=== PATIENT | female | born 1995 | race Caucasian/White ===

== ENCOUNTER 2016-12-17 16:40 | Emergency (ER) | payer BC ==
[2016-12-17 17:15] LABS: % IMMATURE GRANULYOCYTES 0.3 % (0.0-1.1); ABSOLUTE IMMATURE GRANULOCYTES 0.03 10^3/uL (0.00-0.10); ADD DIFF? NO; ADD MORPH? NO; ADD SCAN? NO; ATYPICAL LYMPHOCYTE FLAG 10 (0-99); FRAGMENT RBC FLAG 0 (0-99); HEMATOCRIT 42.1 % (38.0-47.0); HEMOGLOBIN 13.3 g/dL (12.6-16.3); LEFT SHIFT FLG 0 (0-99); LIPEMIA HEMOLYSIS FLAG 80 (0-99); MEAN CELL HEMOGLOBIN 24.5 pg (27.9-34.1); MEAN CELL HEMOGLOBIN CONCENTR. 31.6 g/dL (32.4-36.7); MEAN CELL VOLUME 77.7 fL (81.5-99.8); MEAN PLATELET VOLUME 10.9 fL (8.7-11.7); PLATELET CLUMPS FLAG 0 (0-99); PLATELET COUNT 270 10^3/uL (150-400); RED BLOOD CELL COUNT 5.42 10^6/uL (4.18-5.33); RED CELL DISTRIBUTION WIDTH 13.9 % (11.5-15.2)
--- NOTE | 2016-12-17 17:19 | EDPHY ---
Mental Health General Previous Psychiatric History: previous inpatient psychiatric admission, previous suicide attempt, depression, anxiety History Review: I reviewed the patient's medical records Smoking Status: Never smoked Time Medically Cleared for Psychiatric Evaluation: 18:05 Course: patient remained stable over course of my shift, no additional interventions Narrative: HPI: This is a 21-year-old female who presents with Chief Complaint: Suicidal ideation Location: Quality: Suicidal ideation Duration: Several days Signs and Symptoms: + Depression, + anxiety, + insomnia, + suicidal ideation, no homicidal ideation, no psychosis, no hallucinations Timing: Sudden, constant, worsening Severity: Moderate to severe Context: Patient presents with sudden on thoughts of suicidal ideation with a plan of swallowing pills after follow-up with her friends and now seems to be a strange from them and her support group here in [place]. She lives alone in apartment. Attends [place] [email or web address]. He has not been on any antidepressant , benzodiazepines, antipsychotics in several years as she has been "doing better." She is afraid that she will take her life so she came to the ER for help. Reports that when she was 15 years old she overdosed on Effexor and spent time in inpatient psychiatric hospital. Denies any medical history. Denies recreational drug use. Modifying Factors: Comment: ROS: Constitutional: No fever, no chills, no weight loss Eyes: No blurred vision Respiratory: No shortness of breath, no cough Cardiovascular: No chest pain Gastrointestinal: No nausea, no vomiting no diarrhea Genitourinary: No dysuria Extremities: No myalgias Neurologic: No weakness, no numbness Skin: No rashes Hematologic: No bruising, no bleeding MEDICAL/SURGICAL/SOCIAL HISTORY: ADD, anxiety, IUD in place. CONSTITUTIONAL: Pleasant young adult white female, awake and alert, no obvious distress HEENT: Atraumatic and normocephalic, PERRL, EOMI. Tympanic membranes clear. . Oropharynx clear, no exudate and moist pink mucosa. Airway patent. No lymphadenopathy. No meningismus. Cardiovascular: Normal S1/S2, regular rate, regular rhythm, without murmur rub or gallop. PULMONARY/CHEST: Symmetrical and nontender. Clear to auscultation bilaterally Good air movement. No accessory muscle usage. ABDOMEN: Soft, nondistended, nontender, no rebound, no guarding, no peritoneal signs, no masses or organomegaly. No CVAT. EXTREMITIES: 2/2 pulses, no deformities, no clubbing, no cyanosis or edema. NEUROLOGICAL: no focal neuro deficits. GCS 15. PSYCH: Fair insight and judgment, no flight of ideas, + depression, + flat affect, no psychosis, + suicidal ideations with a plan SKIN: Warm and dry, no erythema. no rash. Good capillary refill. (Sarah Adams) 0716: No acute events overnight however this patient does not contract for safety. The plan is for her father to fly out here from [place] today and meet her in pick her up from the emergency room. He was advised to me by the evaluate her previously that the patient should not leave the emergency room in stay here on a detain her for safety as she is not irma for safety. Until her father arrives. 0720: Lengthy discussion with mental health as well as reviewed previous notes. For plan was in place that this patient was not irma for safety and due to that her father was to fly here from [place] and excelsior picker her daughter. It Is requested this patient remain on a detain her until her father gets here. (Flip Plascencia) This patient was turned over to me at change of shift. As it turns out the psychiatric jumpbasting canvas baster from last night spoke to the psychiatric jumpbasting canvas baster this morning. They re-evaluated the patient's then spoke to the psychiatrist Dr. ana paula unger. Everyone is in agreement this patient is now contract for safety and is safe going home. Her father is flying in from [place] and will be here in a few hours. The patient would like to attend class at the [facility] at noon and not miss that class. I will discharge the patient based on the advice of the psychiatric team. (Eduard Frank) Medical Decision Makin: Patient is depressed with suicidal ideations and a plan with prior attempts at suicide and psychiatric inpatient admission. She is here voluntarily. Will obtain medical clearance and consult for mental evaluation. 180: Medically clear for psychiatric evaluation 2104: Evaluated by psychiatry who recommends patient remain in this facility until tomorrow when her [facility] and can contract for her safety as she is not safe to be alone at this time. They do not recommend inpatient treatment at this time (Sarah Adams) - Objective Vital Signs: Initial Vital Signs Temperature (C) 37 C 12/17/16 16:45 Heart Rate 88 12/17/16 16:45 Respiratory Rate 16 12/17/16 16:45 Blood Pressure 120/96 H 12/17/16 16:45 O2 Sat (%) 92 12/17/16 16:45 O2 Delivery Mode Room Air Allergies/Adverse Reactions: CEFZIL Allergy (Uncoded 12/17/16 16:48) Home Medications: Medication Instructions Recorded Concerta 12/17/16 traZODone 12/17/16 Laboratory Results: Laboratory Results 12/17/16 17:05 12/17/16 17:05 Departure - Departure Disposition: Home, Routine, Self-Care Clinical Impression: Depression Qualifiers: Depression Type: major depressive disorder Major depression recurrence: single episode Active/Remission status: currently active Major depression episode severity: mild Qualified Code(s): F32.0 - Major depressive disorder, single episode, mild Condition: Good Instructions: Depression (ED) Referrals: NONE *PRIMARY CARE P,. [Primary Care Provider] - As per Instructions
[2016-12-17 17:35] LABS: ANION GAP 14 mEq/L (8-16); CALCIUM 9.9 mg/dL (8.5-10.4); CARBON DIOXIDE 25 mEq/l (22-31); CHLORIDE 103 mEq/L (97-110); CREATININE 0.7 mg/dL (0.6-1.0); ETHANOL SERUM < 10 mg/dL (0-10); GLOMERULAR FILTRATION RATE > 60; GLUCOSE 95 mg/dL (70-100); POTASSIUM 3.9 mEq/L (3.5-5.2); SALICYLATE < 1.0 mg/dL (2.0-20.0); SODIUM 142 mEq/L (134-144)
[2016-12-18 09:21] VITALS: BP 117/91; PULSE 66; RESP 18; TEMP 97.5; O2SAT 99
== END 2016-12-18 09:02 | disposition home or self-care (01) ==
DX: F32.0 Major depressive disorder, single episode, mild (principal)
CPT/HCPCS: 80305; G0480